=== PATIENT | male | born 1950 | race Caucasian/White ===

== ENCOUNTER 2018-09-08 22:04 | Inpatient (IN) | payer OTHER ==
[~2018-09-08] VITALS: Ht 177.8 cm; Wt 101.2 kg
[2018-09-08 22:37] LABS: ABSOLUTE BASOPHILS 0.1 thou/uL (0.0-0.2); ABSOLUTE EOSINOPHILS 0.1 thou/uL (0.0-0.7); ABSOLUTE LYMPHOCYTES 3.1 thou/uL (0.8-5.3); ABSOLUTE MONOCYTES 2.7 thou/uL (0.0-1.2); BASOPHILS 0.6 %; EOSINOPHILS 0.6 %; HEMATOCRIT 43.3 % (42.0-52.0); HEMOGLOBIN 13.8 gm/dL (14.0-18.0); LYMPHOCYTES 16.1 %; MCH 27.1 pg (26.0-34.0); MCHC 31.9 g/dL (28.0-37.0); MCV 85.1 fL (80.0-100.0); MONOCYTES 14.1 %; MPV 9.3 fl. (7.2-11.1); NUCLEATED RBCS 0 /100WBC; PLATELET COUNT* 549 thou/uL (150-400); POLYS 68.6 %; RBC 5.08 mil/uL (4.50-6.00)
[2018-09-08 22:47] LABS: ANION GAP 9 mmol/L (7-16); BUN 12 mg/dL (7-18); CALCIUM 9.7 mg/dL (8.5-10.1); CHLORIDE 97 mmol/L (98-107); CO2 28 mmol/L (21-32); CREATININE 1.1 mg/dL (0.6-1.3); GLUCOSE 327 mg/dL (70-99); POTASSIUM 5.1 mmol/L (3.5-5.1); SODIUM 134 mmol/L (136-145)
[2018-09-08 22:50] LABS: PROTIME 10.7 Seconds (9.20-11.50)
[2018-09-08 22:57] LABS: ALBUMIN 3.4 g/dL (3.4-5.0); ALKALINE PHOSPHATASE 141 U/L (46-116); NT-PRO BRAIN NAT PEPTIDE 4050 pg/mL (<300); SGOT 34 U/L (15-37); SGPT 32 U/L (30-65); TOTAL BILIRUBIN 1.1 mg/dL (<0.1-1.0); TOTAL PROTEIN 8.7 g/dL (6.4-8.2); TROPONIN-I LEVEL <0.06 ng/mL (<0.06)
[2018-09-08 23:38] LABS: URINE BILIRUBIN 1+ (Negative); URINE BLOOD 1+ (Negative); URINE CLARITY CLEAR; URINE COLOR YELLOW; URINE GLUCOSE-RANDOM 1+ (Negative); URINE KETONES NEGATIVE (Negative); URINE LEUKOCYTES-REFLEX NEGATIVE (Negative); URINE NITRITE-REFLEX NEGATIVE (Negative); URINE PROTEIN 3+ (Negative); URINE SPECIFIC GRAVITY >= 1.030 (1.005-1.030); URINE UROBILINOGEN 0.2 E.U./dl (0.2-1.0)
[2018-09-08 23:43] LABS: ICTOTEST (BILI CONFIRMATORY) Negative (Negative)
[2018-09-09] VITALS (25 sets, daily range): BP systolic 77–143; BP diastolic 42–79
[2018-09-09 00:06] LABS: AMP/METHAMP POSITIVE (Negative); BARBITURATES Negative (Negative); BENZODIAZEPINES Negative (Negative); COCAINE Negative (Negative); METHADONE Negative (Negative); OPIATES Negative (Negative); PCP Negative (Negative); THC Negative (Negative)
[2018-09-09 01:03] LABS: BE -1.9 mmol/L (-2 to +3)
[2018-09-09 01:06] LABS: PCO2 54.2 mmHg (35.0-45.0); PO2 469.6 mmHg (75.0-100.0); pH 7.285 (7.340-7.450)
--- NOTE | 2018-09-09 01:21 | NUR ---
PT ON THE VENT, CENTRAL LINE IN @0015, LEVOPHED STARTED AT 0105. PT SEDATED ON PROPOFOL.
[2018-09-09 01:46] LABS: HYALINE CASTS 4-10 Moderate /LPF (None Seen); SQUAMOUS 0-3 Few /LPF (0-3)
[2018-09-09 01:47] LABS: URINE WBC-REFLEX 6-15 Few /HPF (0-5)
[2018-09-09 01:48] LABS: URINE RBC 0-2 Rare /HPF (0-2)
[2018-09-09 01:49] LABS: AMORPHOUS URATES Many /LPF (None Seen); BACTERIA-REFLEX 1-9 Few /HPF (None Seen)
[2018-09-09 03:22] LABS: MAGNESIUM 1.7 mg/dL (1.8-2.4); PHOSPHORUS* 4.2 mg/dL (2.5-4.9)
--- NOTE | 2018-09-09 07:52 | NUR ---
Pt deeply sedated on propofol on the vent. Vitals wnl, levophed gtt infusing maintaining map >60. IVF infusing, abx given as ordered. OG to LIS.Deep in line suctioning done as needed, thick yellow sputum moderate amounts suctioned.Boo patent, urine output adequate. CVP monitoring intiated . Elevated troponin reported to provider, cardiology was consulted and notified of troponin 0.70. This troponin trop 1.21, call placed to answering service, report given to oncoming nurse.
[2018-09-09 09:10] LABS: BE -2.8 mmol/L (-2 to +3); PCO2 45.5 mmHg (35.0-45.0); PO2 110.2 mmHg (75.0-100.0); pH 7.327 (7.340-7.450)
--- NOTE | 2018-09-09 09:46 | CON ---
[address] [address] CONSULTATION Name: ARISTIDES NORWOOD Room: [address] IN M.R.#: [id number] Admission: 09/08/18 Attend Phys: Valorie Rosales MD Discharge: Date of : 48 Report #: [id number] THIS REPORT FOR: //name// CC: LESLY physician/PCP Valorie Rosales DATE OF SERVICE: 09/09/2018 REFERRING PHYSICIAN: Valorie Rosales MD CHIEF COMPLAINT: Respiratory failure. HISTORY OF PRESENT ILLNESS: The patient is a 68-year-old male with known chronic obstructive airways disease. Apparently, he had ran out of medication. He became somnolent at home and an individual at his apartment contacted EMS service, I believe a 911 call, the paramedics arrived, the patient was attended to. He was found to be markedly hypoxemic with an O2 saturation of around 65%. He was tachypneic on observation, but he was alert and conscious and speaking, but with some difficulty. He was started on oxygen therapy, given aerosol treatments and transported to the Emergency Room. After evaluation in the Emergency Room, he was in a significant amount of respiratory distress. As a result, he was electively intubated and subsequently transferred to the Intensive Care Unit. PAST MEDICAL HISTORY: Chronic obstructive airways disease. ALLERGIES: No known medication allergies. FAMILY HISTORY: Unavailable. SOCIAL HISTORY: Unavailable. REVIEW OF SYSTEMS: Not obtainable. CURRENT MEDICAL REGIMEN: While here in the hospital consist of IV Levaquin, vancomycin and Zosyn as antibiotic therapy. Aerosol treatments with DuoNeb. He is on propofol drip. P.r.n. fentanyl has been ordered. He is on low dose Levophed. PHYSICAL EXAMINATION: VITAL SIGNS: Blood pressure 111/67, respiratory rate 19, pulse rate 95 and regular. His weight was recorded at 219 pounds. GENERAL APPEARANCE: The patient is sedated. He is not moving at this time because of his sedation. HEENT: Head is atraumatic. Eyes: Pupils are round, equal, reactive. Sclerae and conjunctivae are clear. Nose: Nasal passages are patent. ORAL CAVITY: [place] [address] CONSULTATION Name: ARISTIDES NORWOOD Room: [address] IN [facility]#: [id number] Admission: 09/08/18 Attend Phys: Valorie Rosales MD Discharge: Date of : 48 Report #: [id number] tube and oral gastric tube intact and secure. He does have lots of oral secretions. These were aspirated without difficulty at the bedside. NECK: There is no adenopathy or JVD. CHEST: Reveals coarse breath sounds throughout all lung moses. No appreciable crackles. Good symmetrical expansion. CARDIOVASCULAR: Regular rhythm without murmurs or rubs. ABDOMEN: Soft, without organomegaly. Obese. No tenderness or guarding. SKIN: Warm and dry. Multiple tattoos throughout. No open lesions or drainage. EXTREMITIES: No evidence of edema or clubbing. LYMPHATICS: Negative. Pulses equal bilaterally. MALE GENITALIA: Normal. Boo catheter is in place. NEUROLOGIC: The patient is sedated. He has minimal movement with painful stimuli. LABORATORY DATA: On admission, his electrolytes reveal sodium 134, potassium 5.1, chloride 97, CO2 of 28, BUN of 12, creatinine is 1.1, glucose was 327. Liver enzymes are normal. Total bilirubin just slightly elevated at 1.1. ProBNP 4050. Drug screen positive for methamphetamine. Hemoglobin and hematocrit of 13.8 and 43, with a white count of 19,000. Arterial blood gas this morning at around 12:50 a.m. after intubation revealed a pH 7.29, pCO2 of 54, pO2 of 470, bicarbonate 25 while on 100% FiO2, assist control 12, tidal volume 550, PEEP of 5. CTA of the chest performed today early this morning did not show any evidence of filling defects within the pulmonary vasculature. There is no evidence of infiltrates or effusions. No evidence of significant adenopathy. A 2 cm lesion on the anterior cortex of the upper pole of the left kidney is present. This should be followed with an abdominal ultrasound for better identification purposes. Chest x-ray obtained after intubation yesterday did not reveal any acute infiltrates. ET tube is above the justin. ASSESSMENT: 1. Acute respiratory insufficiency/failure. 2. Exacerbation of chronic obstructive pulmonary disease. 3. Tracheobronchitis. 4. Drug abuse with evidence of methamphetamine in a urine drug screen. PLAN: We will initiate steroid therapy as well. The patient has an elevated blood sugar. A sliding scale insulin protocol will be initiated. Maintenance fluids will be performed as well. Nutrition should be addressed. A repeat arterial blood gas will be obtained this morning and a weaning trial will be attempted tomorrow with followup x-ray, ABGs. [address] [address] CONSULTATION Name: ARISTIDES NORWOOD Room: [facility] IN [place].#: [id number] Admission: 09/08/18 Attend Phys: Valorie Rosales MD Discharge: Date of : 48 Report #: [id number] Approximately 35 minutes spent in critical care time on this patient. <ELECTRONICALLY SIGNED> By: Jose Talley MD 09/09/18 0946 0839 [id number] Talley MD /nt
--- NOTE | 2018-09-09 10:38 | NUR ---
PATIENT HAS NO CONTACTS NOTED IN MEDICAL RECORD. PATIENT'S CELL PHONE, WALLET, NECKLACE, AND RING LOCKED IN SECURITY.
--- NOTE | 2018-09-09 10:50 | EKG ---
[place] [address] ELECTROCARDIOGRAM REPORT Name: ENMAARISTIDES Room: [address] ADM IN .R.#: [id number] Admission: 09/08/18 Attend Phys: Valorie Rosales MD Discharge: Date of : 48 Report #: [id number] THIS REPORT FOR: //name// [facility] ED Test Date: 2018-09-08 Test Time: 22:11:04 Pat Name: ARISTIDES NORWOOD Department: Room: [facility] Gender: M Home Specialist: AP : 1950 Requested By: Vicki Padron Order Number: [id number] MD: Foster Jacques Measurements Intervals [place] Rate: 135 P: 78 NV: 127 QRS: 5 QRSD: 102 T: 118 QT: 273 QTc: 410 Interpretive Statements Sinus tachycardia nonspecific st abnormalities Baseline wander in lead(s) V2,V3,V4 No previous ECG available for comparison Electronically Signed On 09-09-2018 10:49:55 METAL DRILL OPERATOR by Foster Jacques [email or web address] <ELECTRONICALLY SIGNED> By: Foster Jacques MD, [facility] 09/09/18 1049 10 10 Foster Jacques MD, FAC /EPI
--- NOTE | 2018-09-09 13:42 | 2DMMODE ---
[place] [address] 2 D/M-MODE ECHOCARDIOGRAM Name: ARISTIDES NORWOOD [facility]#: [id number] Admission: 09/08/18 Attend Phys: Valorie Rosales, Discharge: Date of : 48 Date of Service: 09/09/18 1342 Report #: [id number] THIS REPORT FOR: //name// APPROVED REPORT Study performed: 09/09/2018 10:42:32 EXAM: Comprehensive 2D, Doppler, and color-flow Echocardiogram Patient Location: In-Patient Room #: [facility] Status: routine BSA: 2.17 HR: 90 bpm BP: 134/77 mmHg Rhythm: NSR Other Information Study Quality: Good Indications Non STEMI 2D Dimensions IVSd: 10.64 (7-11mm) LVOT Diam: 19.95 (18-24mm) LVDd: 49.64 mm PWd: 14.02 (7-11mm) LVDs: 45.07 (25-40mm) Aortic Root: 34.32 mm Volumes Left Atrial Volume (Systole) LA ESV Index: 19.10 mL/m2 Aortic Valve AoV Peak Marco A.: 0.92 m/s AO Peak Gr.: 3.36 mmHg LVOT Max P.30 mmHg AO Mean Gr.: 2.02 mmHg LVOT Mean P.96 mmHg LVOT Max V: 0.76 m/s AO V2 VTI: 12.59 cm LVOT Mean V: 0.44 m/s XOCHITL (VTI): 2.62 cm2 LVOT V1 VTI: 10.56 cm Mitral Valve E/A Ratio: 0.52 MV Decel. Time: 101.96 ms MV E Max Marco A.: 0.43 m/s MV PHT: 29.57 [place] [address] 2 D/M-MODE ECHOCARDIOGRAM Name: ARISTIDES NORWOOD Room: [address] IN ..#: [id number] Admission: 09/08/18 Attend Phys: Valorie Rosales, Discharge: Date of : 48 Date of Service: 09/09/18 1342 Report #: [id number] MVA (PHT): 7.44 cm2 TDI E/Lateral E': 6.14 E/Medial E': 8.60 Medial E' Marco A.: 0.05 m/s Lateral E' Marco A.: 0.07 m/s Pulmonary Valve PV Peak Marco A.: 0.70 m/s PV Peak Gr.: 1.98 mmHg Tricuspid Valve RAP Estimate: 5.00 mmHg TR Peak Gr.: 25.36 mmHg RVSP: 30.00 mmHg PA Pressure: 30.00 mmHg Left Ventricle The left ventricle is normal size. There is severe global hypokinesis of the left ventricle. Mild concentric left ventricular hypertrophy. Left ventricular systolic function is severely decreased. LVEF is 25-30%. Grade I - abnormal relaxation pattern. Right Ventricle The right ventricle is normal size. The right ventricular systolic function is normal. Atria The left atrium size is normal. The right atrium size is normal. Aortic Valve The aortic valve is normal in structure. No aortic regurgitation is present. There is no aortic valvular stenosis. Mitral Valve The mitral valve is normal in structure. There is no mitral valve regurgitation noted. No evidence of mitral valve stenosis. Tricuspid Valve The tricuspid valve is normal in structure. Trace tricuspid regurgitation. estimated pa pressure 35 [place] [address] 2 D/M-MODE ECHOCARDIOGRAM Name: ARISTIDES NORWOOD Room: [address] IN [facility]#: [id number] Admission: 09/08/18 Attend Phys: Valorie Rosales, Discharge: Date of : 48 Date of Service: 09/09/18 1342 Report #: [id number] The pulmonary valve is normal in structure. There is no pulmonic valvular regurgitation. Great Vessels The aortic root is normal in size. IVC is normal in size and collapses >50% with inspiration. Pericardium There is no pericardial effusion. <Conclusion> LVEF is 25-30%. Mild concentric left ventricular hypertrophy. <ELECTRONICALLY SIGNED> By: Foster Jacques MD, FACC 09/09/181341 41 41 Foster Jacques MD, FAC /INF
--- NOTE | 2018-09-09 14:40 | CON ---
[address] [address] CONSULTATION Name: ARISTIDES NORWOOD Room: [address] ADM IN M.R.#: [id number] Admission: 09/08/18 Attend Phys: Valorie Rosales MD Discharge: Date of : 48 Report #: [id number] THIS REPORT FOR: //name// CC: LESLY physician/PCP Valorie Rosales DATE OF SERVICE: 09/09/2018 HISTORY OF PRESENT ILLNESS: The patient is a 68-year-old white male who I was asked to see in the hospital today after he was noted to have an abnormal troponin. The history is obtained from the chart. There are no old records available. The patient has a history of smoking and COPD. He was brought to the Emergency Room by ambulance because of shortness of breath. Paramedics were called to the patient's apartment by another individual that was with him. When paramedics arrived, he was noted to be hypoxic. He was tachycardic and had difficulty speaking. His blood sugar was elevated. He was given a breathing treatment, placed on oxygen. He was brought to the Emergency Room. Apparently, the patient had been coughing. In the Emergency Room, because of shortness of breath, he was eventually intubated. He was placed in the ICU. His blood pressure is low, and he is placed on IV dopamine. Cardiology consultation requested. There is no history of chest pain or syncope. PAST MEDICAL HISTORY: Otherwise is unknown. MEDICATIONS: He is on no home medications that are known. ALLERGIES: He has no known drug allergies. FAMILY HISTORY: Could not be obtained. SOCIAL HISTORY: Unobtainable at this time. REVIEW OF SYSTEMS: Could not be obtained. PHYSICAL EXAMINATION: GENERAL: Revealed an elderly male, lying in bed. He is on ventilator. VITAL SIGNS: Blood pressure 100/60, pulse is 90. HEENT: He is anicteric. Conjunctivae pink. Mucous membranes moist. NECK: Veins do not appear distended. CHEST: Clear to auscultation. CARDIOVASCULAR: Regular rate and rhythm. ABDOMEN: Soft. EXTREMITIES: Had no pitting edema. SKIN: Cool and dry. NEUROLOGIC: He is unresponsive [place] [address] CONSULTATION Name: ARISTIDES NORWOOD Room: [address]#: [id number] Admission: 09/08/18 Attend Phys: Valroie Rosales MD Discharge: Date of : 48 Report #: [id number] RADIOLOGICAL DATA: His ECG showed a sinus tachycardia, nonspecific ST and T-wave changes were noted. The patient had a portable chest x-ray on admission that showed cardiomegaly, otherwise clear lung moses. He had a CT scan of the chest using a PE protocol that showed no pulmonary embolus, possible bronchitis. No infiltrate, minimal adenopathy. LABORATORY DATA: Sodium 134, creatinine 1.1, glucose 327. His troponin was 1.2. BNP 4050. His urine drug screen positive for methamphetamines. White blood cell count 19.0, hemoglobin 13.8. IMPRESSION AND RECOMMENDATIONS: 1. Non-ST segment elevation myocardial infarction. I would not recommend cardiac catheterization at this time. I would give the patient an aspirin a day. Blood pressure too low for beta conner. 2. Respiratory failure. Suspect chronic obstructive pulmonary disease. 3. Tobacco abuse. 4. Elevated blood sugar. I would rule out diabetes. 5. Substance abuse. The patient with methamphetamine in his urine drug screen. <ELECTRONICALLY SIGNED> By: Foster Jacques MD, [facility] 09/09/18 1440 0849 [id number] Jacques MD, FAC /nt
--- NOTE | 2018-09-09 14:58 | EKG ---
[place] [address] ELECTROCARDIOGRAM REPORT Name: ENMAARISTIDES Room: [address] ADM IN .R.#: [id number] Admission: 09/08/18 Attend Phys: Valorie Rosales MD Discharge: Date of : 48 Report #: [id number] THIS REPORT FOR: //name// [facility] ED Test Date: 2018-09-08 Test Time: 23:44:41 Pat Name: ARISTIDES NORWOOD Department: Room: [address] Gender: M Dam Tender Assistant: AP : 1950 Requested By: Vicki Padron Order Number: [id number] Reading MD: Foster Jacques Measurements Intervals [place] Rate: 115 P: 88 IA: 164 QRS: -21 QRSD: 103 T: 139 QT: 310 QTc: 429 Interpretive Statements Sinus tachycardia Probable inferior infarct Abnrm T, consider ischemia, anterolateral lds Compared to ECG 09/08/2018 22:11:04 Possible ischemia still present Electronically Signed On 09-09-2018 14:58:13 PURCHASING COORDINATOR by Foster Jacques [email or web address] <ELECTRONICALLY SIGNED> By: Foster Jacques MD, [facility] 09/09/18 1458 2344 2344 Foster Jacques MD, [facility] /EPI
--- NOTE | 2018-09-09 18:11 | NUR ---
PATIENT PROGRESSING TOWARDS GOALS. REMAIND SEDATED ON VENTILATOR FOR TODAY, PULMONARY WILL REASSESS TOMORROW. PROPOFOL TITRATED TO 20 MCG/KG/MIN. LEVOPHED TITRATED OFF. NS INFUSING PER EMAR AT 100 ML/HR. PATIENT TURNED Q2H TO MAINTAIN SKIN INTEGRITY. GOOD URINE OUTPUT NOTED. PATIENT'S FRIEND CALLED TO CHECK ON PATIENT, BUT HAS NOT BEEN UP TO SEE PATIENT. LEFT HIS NUMBER FOR CONTACT. STATES HE DOES NOT KNOW MUCH ABOUT HIS HEALTH HISTORY THAN WHAT IS ALREADY IN CHART.
[2018-09-10] VITALS (33 sets, daily range): BP systolic 108–162; BP diastolic 58–103
[2018-09-10 04:31] LABS: CHOLESTEROL 112 mg/dL (<200); HDL CHOLESTEROL 23 mg/dL (>40); LDL CHOLESTEROL 62 mg/dL (<100); TC:HDL 4.9 Ratio (Not establshd); TRIGLYCERIDE 136 mg/dL (<150); VLDL 27 mg/dL (<40)
[2018-09-10 04:38] LABS: SERUM ASSESSMENT CLEAR; TROPONIN-I LEVEL 3.35 ng/mL (<0.06)
--- NOTE | 2018-09-10 05:47 | NUR ---
REPORT RECEIVED FROM OFF GOING SHIFT AND CARE ASSUMMED. MONITORS INTACT AND ALARMS SET. ETT 7.5 27 AT LIP INTACT WITH VENT SETTINGS AC 12, TV 550, PEEP 5 AND FIO2 35%. SHIPLEY INTACT AND PATENT DRAINING YELLOW URINE TO BEDSIDE BAG. OG TUBE 60 CM INTACT AND CONNECTED TO LIS. PT HAS YELLOW TO GREEN THICK SECRETIONS WHEN SUCTIONED. VSS AND NO ACUTE CHANGES DURING SHIFT. CRITICAL TROPONIN CALLED AND DR NOTIFIED WITH NO NEW ORDERS RECEIVED. PT TURNED Q2HRS. WILL CONINTUE TO MONITOR
[2018-09-10 08:44] LABS: HEMATOCRIT 33.3 % (42.0-52.0); MCH 27.3 pg (26.0-34.0); MCHC 32.4 g/dL (28.0-37.0); MCV 84.3 fL (80.0-100.0); MPV 8.8 fl. (7.2-11.1); RBC 3.95 mil/uL (4.50-6.00); RDW-CV 16.3 % (10.5-14.5); WBC 12.8 thou/uL (4.0-11.0)
[2018-09-10 08:59] LABS: CALCIUM 8.4 mg/dL (8.5-10.1); CREATININE 0.8 mg/dL (0.6-1.3); MAGNESIUM 2.2 mg/dL (1.8-2.4)
[2018-09-10 09:06] LABS: HEMOGLOBIN 10.8 gm/dL (14.0-18.0)
[2018-09-10 09:17] LABS: BE 0.9 mmol/L (-2 to +3); PO2 72.2 mmHg (75.0-100.0); pH 7.349 (7.340-7.450)
[2018-09-10 09:20] LABS: PCO2 50.2 mmHg (35.0-45.0)
--- NOTE | 2018-09-10 09:50 | NUR ---
PATIENT CHARTING COMPLETED BY WEI PRINCE, TRUST MANAGER. THIS RN OBSERVED AND AGREES WITH CHARTING.
--- NOTE | 2018-09-10 10:00 | NUR ---
CHART REVIEWED, SPOKE WITH NURSING. PT ADMITTED 0N 09/08, INTUBATED IN THE E.D. AND REMAINS ON VENT. ONLY CONTACT INFORMTAION IS FRIEND YASMIN ([phone]) WHO BROUGHT PT IN AND HAS CALLED TO CHECK ON HIM. NURSING WILL SEE IF THEY CAN GET ADDITIONAL INFORMATION FROM YASMIN ABOUT PT'S HISTORY, ETC.
--- NOTE | 2018-09-10 12:23 | EKG ---
[place] [address] ELECTROCARDIOGRAM REPORT Name: ARISTIDES NORWOOD Room: [address] ADM IN M.R.#: [id number] Admission: 09/08/18 Attend Phys: Valorie Rosales MD Discharge: Date of : 48 Report #: [id number] THIS REPORT FOR: //name// [facility] Test Date: 2018-09-10 Test Time: 07:58:05 Pat Name: ARISTIDES NORWOOD Department: Room: [address] Gender: M Receptionist Clerk: : 1950 Requested By: Foster Jacques Order Number: [id number] MD: Foster Jacques Measurements Intervals [place] Rate: 97 P: 94 WA: 180 QRS: -41 QRSD: 110 T: 88 QT: 356 QTc: 452 Interpretive Statements Sinus rhythm Left axis deviation Nonspecific T abnormalities, lateral leads Minimal ST elevation, anterior leads Compared to ECG 09/08/2018 23:44:41 T-wave abnormality now present ST (T wave) deviation now present Sinus tachycardia no longer present Possible ischemia no longer present Electronically Signed On 09-10-2018 12:22:44 LIGHTING FIXTURES DECORATOR by Foster Jacques [email or web address] <ELECTRONICALLY SIGNED> By: Foster Jacques MD, [facility] 09/10/18 1222 0758 0758 Foster Jacques MD, [facility] /EPI
--- NOTE | 2018-09-10 14:40 | NUR ---
ROCHELLE CABALLERO (SON) CAME TO VISIT PATIENT. STATED HE JUST FOUND OUT HE WAS IN THE HOSPITAL. STATED HE LIVES NEARBY BUT DOES NOT SEE HIS FATHER VERY MUCH. UPDATED ON PATIENT STATUS. STATED HE WILL CALL HIS SISTER TO LET HER KNOW WHAT IS GOING ON.
--- NOTE | 2018-09-10 17:06 | NUR ---
PATIENT SOMEWHAT PROGRESSING TOWARDS GOALS. DID NOT TOLERATE WEANING TRIAL. REPEAT TRIAL SCHEDULED FOR TOMORROW. PATIENT REMAINS SEDATED ON PROPOFOL PER MED TITRATION. SALINE DECREASED TO 40 ML/HR BY PULMONARY FOR HF. INCREASED TO MODERATE DOSE SLIDING SCALE INSULIN TODAY PER ICU PROTOCOL. TRACING NSR ON DIRECTOR EMPLOYEE COMMUNICATIONS. BPS ELEVATED. STARTED ON ALDACTONE AND CARVEDILOL PERTUBE BY CARDIOLOGY. RECORDS REQUESTED FROM [facility]. NO OTHER ACUTE EVENTS THIS SHIFT.
--- NOTE | 2018-09-10 17:08 | NUR ---
THIS RN REVIEWED AND AGREES WITH WEI PRINCE, STUDENT NURSE'S DOCUMENATION.
--- NOTE | 2018-09-10 17:13 | NUR ---
PATIENT HAD 5 BEAT RUN OF V-TACH.
[2018-09-11] VITALS (28 sets, daily range): BP systolic 53–170; BP diastolic 34–118
[2018-09-11 04:52] LABS: HEMATOCRIT 32.9 % (42.0-52.0); HEMOGLOBIN 10.6 gm/dL (14.0-18.0); MCH 27.1 pg (26.0-34.0); MCHC 32.2 g/dL (28.0-37.0); MCV 84.1 fL (80.0-100.0); MPV 8.3 fl. (7.2-11.1); NUCLEATED RBCS 0 /100WBC; PLATELET COUNT* 359 thou/uL (150-400); RBC 3.91 mil/uL (4.50-6.00); RDW-CV 16.6 % (10.5-14.5); WBC 13.6 thou/uL (4.0-11.0)
[2018-09-11 05:14] LABS: ALBUMIN 2.3 g/dL (3.4-5.0); CALCIUM 8.4 mg/dL (8.5-10.1); CREATININE 0.8 mg/dL (0.6-1.3); TOTAL BILIRUBIN 0.3 mg/dL (<0.1-1.0); TOTAL PROTEIN 6.2 g/dL (6.4-8.2)
--- NOTE | 2018-09-11 06:33 | NUR ---
Pt now on Precedex gtt for sedation; at max dose of 1.4 mcg/kg/hr. Propofol stopped. Scheduled for weaning trial this morning at 0800. VSS. 500 ml urine output for shift. Suctioning smaller amounts of sputum via ET tube. Breath snds clear. Will continue to monitor.
[2018-09-11 06:38] LABS: ABSOLUTE LYMPHOCYTES 0.7 thou/uL (0.8-5.3); ANISOCYTOSIS 1+; PLATELET ESTIMATE ADEQUATE; POIKILOCYTOSIS 1+
--- NOTE | 2018-09-11 09:00 | NUR ---
NS RUNNING AT 40ML/HOUR PER DR MEJIAS.
--- NOTE | 2018-09-11 11:57 | NUR ---
HEART RATE 59-61. WEANING TRIAL AT 0800 PER PULMONARY ORDERS. PT ON PRECEDEX AT 1.4 MCG/KG/HR. ON PRECEDEX FOR WEANING TRIAL PER PULMONARY. PT BECAME HYPOTENSIVE. 70'S/30'S. PT ON WEANING TRIAL 8 MINUTES. PHARMACY CALLED FOR LEVOPHED. BP CAME UP. LEVOPHED AT BEDSIDE BUT NOT STARTED. PT RESTLESS, SITTING UP, MOVING ARMS AND LEGS. PRN FENTANYL PUSH ADMINISTERED PER OCT. PT LIGHTLY SEDATED WITH FENTANYL PUSH AND PT ABLE TO FOLLOW DIRECTIONS. PT CALM. AROUND 0940 HR IN 30'S AND RHYTHM CHANGE. PT NOTED TO HAVE BBB AND ST ELEVATION ON NURSE CARDIAC MONITORS. EKG IN PROCESS OF BEING OBTAINED AND CARDIOLOGY CALLED.
--- NOTE | 2018-09-11 14:27 | NUR ---
HOME [facility] [phone] IN [place], [place].
--- NOTE | 2018-09-11 14:30 | NUR ---
PT CODED AND EARLIER TODAY. SPOKE WITH SON ROCHELLE AND OTHER FAMILY MEMBERS. FAMILY MAY WANT AN AUTOPSY, DISCUSSED WITH THEM THAT THEY WILL BE RESPONSIBILE FOR THE COST OF THE AUTOPSY. THEY WILL DISCUSS FURTHER AND LET NURSING KNOW IF THEY WANT TO PROCEED WITH AUTOPSY OR NOT.
--- NOTE | 2018-09-11 15:48 | NUR ---
FAMILY REPORTS THEY THINK PT HAD CELL PHONE AND A RING. CONTENTS OF PATIENTS BELONGINGS BAG EMPTIED WITH FAMILY, ROCHELLE AND SISTER. IN BAG SHOES & CLOTHING FOUND. PT NOT WEARING A RING. SECURITY CALLED AND PT DOES NOT HAVE ANY BELONGINGS IN SECURITY. PERSONAL BELONGINS MENTIONED ABOVE WENT HOME WITH FAMILY, ROCHELLE EHSAN.
--- NOTE | 2018-09-11 16:29 | NUR ---
FAMILY, ROCHELLE NORWOOD, DECIDED NOT TO DO AN AUTOPSY.
--- NOTE | 2018-09-11 18:40 | NUR ---
[facility] CALLED AND STATED PT WILL NOT BE DONATING. HOME CALLED.
--- NOTE | 2018-09-11 18:57 | NUR ---
PT LEFT BY HOME TRANSPORATION AT 1856.
--- NOTE | 2018-09-14 09:20 | NUR ---
enterd onto restraint log 09/11/18.
== END 2018-09-11 10:17 | DRG 208 ==
LOC: M.ERS 22:04 → M.TBA-ER 23:38 → M.ICU 23:38
PROVIDERS: Emergency Medicine; Internal Medicine; Internal Medicine Cardiovascular Disease; Internal Medicine Pulmonary Disease; ADMIT Internal Medicine
PROC: 0BH17EZ Insertion of Endotracheal Airway into Trachea, Via Natural or Artificial Opening (ICD-10-PCS; principal; 2018-09-08)
PROC: B548ZZA Ultrasonography of Superior Vena Cava, Guidance (ICD-10-PCS; principal; 2018-09-08)
PROC: 5A1945Z Respiratory Ventilation, 24-96 Consecutive Hours (ICD-10-PCS; principal; 2018-09-08)
PROC: 02HV33Z Insertion of Infusion Device into Superior Vena Cava, Percutaneous Approach (ICD-10-PCS; principal; 2018-09-08)
DX: J96.01 Acute respiratory failure with hypoxia (principal); J69.0 Pneumonitis due to inhalation of food and vomit; I21.4 Non-ST elevation (NSTEMI) myocardial infarction; J44.1 Chronic obstructive pulmonary disease with (acute) exacerbation; E87.4 Mixed disorder of acid-base balance; R57.9 Shock, unspecified; I42.9 Cardiomyopathy, unspecified; J96.02 Acute respiratory failure with hypercapnia; J40 Bronchitis, not specified as acute or chronic; I50.9 Heart failure, unspecified; F19.10 Other psychoactive substance abuse, uncomplicated; R73.9 Hyperglycemia, unspecified; Z79.82 Long term (current) use of aspirin; Z79.899 Other long term (current) drug therapy; Z28.21 Immunization not carried out because of patient refusal